=== PATIENT | male | born 1985 | race Two or more races ===

== ENCOUNTER 2019-04-02 14:59 | Emergency (ER) | payer OTHER, SELFPAY ==
[~2019-04-02] VITALS: Ht 175.3 cm; Wt 78.0 kg
[2019-04-02 15:01] VITALS: BP 106/53
== END 2019-04-02 15:35 | disposition home or self-care (01) ==
LOC: ED 15:33
DX: A56.8 Sexually transmitted chlamydial infection of other sites (principal); A54.9 Gonococcal infection, unspecified
CPT/HCPCS: 87491; 87591; 96372; 99283; J0696

== ENCOUNTER 2020-11-04 07:50 | Emergency (ER) | payer SELFPAY ==
[~2020-11-04] VITALS: Ht 172.7 cm; Wt 80.6 kg
[2020-11-04 07:51] VITALS: BP 118/85
== END 2020-11-04 08:56 | disposition home or self-care (01) ==
LOC: ED 08:23
DX: S86.912A Strain of unspecified muscle(s) and tendon(s) at lower leg level, left leg, initial encounter (principal); M79.89 Other specified soft tissue disorders; F17.210 Nicotine dependence, cigarettes, uncomplicated; X58.XXXA Exposure to other specified factors, initial encounter; Y93.89 Activity, other specified; Y92.89 Other specified places as the place of occurrence of the external cause; Y99.8 Other external cause status
CPT/HCPCS: 99284